=== PATIENT | female | born 1990 | race Caucasian/White ===

== ENCOUNTER 2022-09-09 11:07 | Emergency (ER) | payer BC, SELFPAY ==
--- NOTE | 2022-09-09 11:17 | ED.EAR ---
HPI - Ear Problem General Chief complaint: Ear Stated complaint: bilateral ear pain Time Seen by Provider: 09/09/22 11:16 Source: patient Mode of arrival: ambulatory Limitations: no limitations History of Present Illness HPI Narrative: Mireya is a 31-year-old female patient presenting to the clinic today with complaints of bilateral ear pain x1 week. She reports with she is has clogging and popping in her ears. She is also concerned about her right eye states that it was itchy and red yesterday but has somewhat improved. She denies any known drainage coming from her eye. Related Data Home Medications Medication Instructions Recorded Confirmed fexofenadine 60 mg tablet (Hanane 60 mg PO DAILY 09/09/22 09/09/22 Allergy) Allergies Allergy/AdvReac Type Severity Reaction Status Date / Time Penicillins Allergy Unknown Verified 09/09/22 11:33 prednisone AdvReac Rash Verified 09/09/22 11:32 Review of Systems Review of Systems: Pertinent positives per HPI. Patient denies any fever, chills, rash, headache, visual changes, dizziness, cough, runny nose, sore throat, shortness of breath, chest pain, palpitations, nausea, vomiting, diarrhea, constipation, abdominal pain, or any urinary issues. PMFSH Comments At the time of my signature, I reviewed and agree with the nursing past medical, surgical, social, and family history. There is no relevant family history pertinent to the patient complaint. Exam Narrative: General: Well-developed, well nourished, in no apparent distress Head: Normocephalic, atraumatic Eyes: Pupils equally round and reactive to light bilaterally, EOM intact, left sclera and conjunctive clear, right sclera is injected and conjunctiva mildly injected, no discharge, lids normal Ears: TMs intact, dull, bulging, fluid noted behind the TM, ear canals clear, no drainage, grossly hearing normal. Nose: Nares patent, clear neck discharge, no inflammation, no sinus tenderness. Mouth: Oropharynx without lesions or masses, good dentition, MMM. Neck: Supple, trachea midline, no enlargement of anterior or posterior cervical nodes, no thyroid masses or goiter palpable. Cardio: Regular rate and rhythm, s1 and s2 normal, no murmur appreciated. Resp: Clear to auscultation bilaterally anteriorly and posteriorly, no rhonchi, rales, wheezing or rubs Course Course Emergency Course: Portions of this record may have been created with voice recognition software. Level of Care: Express Care Visit Vital Signs Vital signs: Vital Signs Temperature 36.4 C L 09/09/22 11:26 Pulse Rate 90 09/09/22 11:26 Respiratory Rate 18 09/09/22 11:26 Blood Pressure 141/87 H 09/09/22 11:26 Pulse Oximetry 99 09/09/22 11:26 Oxygen Delivery Room Air 09/09/22 11:26 Temperature 36.4 C L 09/09/22 11:26 Pulse Rate 90 09/09/22 11:26 Respiratory Rate 18 09/09/22 11:26 Blood Pressure 141/87 H 09/09/22 11:26 Pulse Oximetry 99 09/09/22 11:26 Oxygen Delivery Room Air 09/09/22 11:26 Vital signs reviewed Medical Decision Making MDM Narrative Medical decision making narrative: At the time of visit patient is resting comfortably on the exam table. I suspect patient has eustachian tube dysfunction , serous otitis, and right eye irritation. Supportive measures were discussed with the patient she voiced understanding of discharge instructions and agrees to treatment plan Differential Diagnosis Differential Diagnosis: Otitis media, otitis externa, eustachian tube dysfunction, otalgia Vital Signs Vital Signs: Vital Signs Temperature 36.4 C L 09/09/22 11:26 Pulse Rate 90 09/09/22 11:26 Respiratory Rate 18 09/09/22 11:26 Blood Pressure 141/87 H 09/09/22 11:26 Pulse Oximetry 99 09/09/22 11:26 Oxygen Delivery Room Air 09/09/22 11:26 Temperature 36.4 C L 09/09/22 11:26 Pulse Rate 90 09/09/22 11:26 Respiratory Rate 18 09/09/22 11:26 Blood Pressure 141/87 H 09/09/22 1
[2022-09-09 11:26] VITALS: BP 141/87; PULSE 90; RESP 18; TEMP 36.4; O2SAT 99
== END 2022-09-09 11:40 | disposition home or self-care (01) ==
PROVIDERS: Emergency Provider Nurse Practitioner Family
DX: H65.03 Acute serous otitis media, bilateral (principal); H69.81 Other specified disorders of Eustachian tube, right ear
CPT/HCPCS: 99202; G0463

== ENCOUNTER 2022-12-28 08:36 | Emergency (ER) | payer BC, SELFPAY ==
[2022-12-28 09:02] VITALS: BP 121/74; PULSE 80; RESP 18; TEMP 36.6; O2SAT 100
--- NOTE | 2022-12-28 09:24 | ED.URI ---
HPI - URI/Sore Throat General Chief Complaint: Upper Respiratory Infection Stated Complaint: Sore Throat,Bilateral Ear Irritation Source: patient Mode of arrival: ambulatory Limitations: no limitations History of Present Illness HPI Narrative: 31-year-old female presents to [facility] complains of sore throat and bilateral ear pain for the past 4 days. Patient takes Hanane daily. Patient reports her son was recently sick with bilateral ear infection. Patient denies fever, body aches, chills, nausea, vomiting or diarrhea. Patient denies recent trauma. Patient denies fever, body aches, chills, nausea, vomiting or diarrhea MD elicited complaint: sore throat and other (Bilateral ear pain) Onset (ago): day(s) (4) Able to tolerate fluids by mouth: Yes Exacerbating factors: swallowing Context: sick contacts Related Data Home Medications Medication Instructions Recorded Confirmed fexofenadine 60 mg tablet (Hanane 60 mg PO DAILY 09/09/22 12/28/22 Allergy) Allergies Allergy/AdvReac Type Severity Reaction Status Date / Time Penicillins Allergy Unknown Verified 09/09/22 11:33 prednisone AdvReac Rash Verified 09/09/22 11:32 Review of Systems Constitutional: Constitutional: Denies fatigue, Denies fever(s) and Denies weakness ENT: Denies dysphagia, Denies vertigo, Denies dizziness, Denies epistaxis, Denies nasal congestion and Reports sore throat Comments: Bilateral ear irritation Cardiovascular: Cardiovascular: Denies chest pain Respiratory: Respiratory: Denies chest congestion, Denies cough, Denies dyspnea and Denies wheezing Gastrointestinal: Gastrointestinal: Denies diarrhea, Denies nausea and Denies vomiting Genitourinary: Genitourinary: Denies hematuria, Denies nocturia, Denies genital lesions and Denies dysuria Integumentary/Breasts: Skin/Breast: Denies rash Neurologic: Denies dizziness, Denies syncope and Denies headache(s) PMFSH Comments At time of signature, I agree with nursing past medical, surgical, social and family history. There is no relevant family history pertinent to the presenting complaint. Exam Const: General: healthy appearing and no acute distress Nutritional Appearance: well nourished Orientation/consciousness: patient oriented x3 Limitations: no limitations and No altered mental status HENMT: Head: normal to inspection Ears: external ears normal, EAC's normal and TM abnormal wth effusion serous bilateral Face and sinus: normal facial exam Mouth: Yes Normal oral and palatal mucosa present, Yes lip normal and Yes moist mucous membranes Teeth and gingiva: dentition normal Throat: posterior oropharynx normal and uvula midline Eyes: Conjunctivae: conjunctivae normal Neck: Neck: normal visual inspection Resp: Effort & Inspection: normal respiratory effort and not labored Auscultation: clear to auscultation bilaterally, no crackles, no rales, no rhonchi and no wheezes Cardio: Rate: regular rate Rhythm: regular rhythm Heart sounds: no murmurs Skin: General skin exam: normal color Neuro: General: patient oriented x3 Speech: normal speech Gait exam (Neuro): Normal gait present Psych: Affect: normal affect Attitude: cooperative Course Course Level of Care: Express Care Visit Vital Signs Vital signs: Vital Signs Temperature 36.6 C 12/28/22 09:02 Pulse Rate 80 12/28/22 09:02 Respiratory Rate 18 12/28/22 09:02 Blood Pressure 121/74 12/28/22 09:02 Pulse Oximetry 100 12/28/22 09:02 Oxygen Delivery Room Air 12/28/22 09:02 Temperature 36.6 C 12/28/22 09:02 Pulse Rate 80 12/28/22 09:02 Respiratory Rate 18 12/28/22 09:02 Blood Pressure 121/74 12/28/22 09:02 Pulse Oximetry 100 12/28/22 09:02 Oxygen Delivery Room Air 12/28/22 09:02 MDM - URI/Sore Throat MDM Narrative Medical decision making narrative: Instructed patient to continue Hanane daily. Patient reports that she has Flonase at home that she will restart using. N
== END 2022-12-28 09:40 | disposition home or self-care (01) ==
PROVIDERS: Emergency Provider Nurse Practitioner Family
DX: H65.00 Acute serous otitis media, unspecified ear (principal)
CPT/HCPCS: 87081; 87880; 99213; G0463

== ENCOUNTER 2024-10-05 12:30 | Emergency (ER) | payer BC, SELFPAY ==
[2024-10-05 12:53] VITALS: BP 125/83; PULSE 67; RESP 18; TEMP 36.7; O2SAT 100
--- NOTE | 2024-10-05 13:35 | ED_ITS ---
HPI - URI/Sore Throat General Chief Complaint: Upper Respiratory Infection Stated Complaint: congestion and ear pain Time Seen by Provider: 10/05/24 13:35 Source: patient, RN notes reviewed and old records reviewed Mode of arrival: ambulatory Limitations: no limitations History of Present Illness HPI Narrative: Patient presents with complaints of left ear pain. She reports that she had some URI symptoms earlier in the week, has been treating them with [id number] medications with reasonable results. States that suddenly today she began with severe left ear pain, worse with bending over. She denies any fever, chills, sweats. she denies any injury or trauma. She voices no other concerns or complaints at this time. Related Data Allergies Allergy/AdvReac Type Severity Reaction Status Date / Time Penicillins Allergy Mild Rash Verified 10/05/24 13:41 prednisone Allergy Rash Verified 10/05/24 13:41 Review of Systems Review of Systems: All systems reviewed & are unremarkable except as noted in HPI and below Constitutional: Constitutional: Reports no additional constitutional complaints ENT: Reports system reviewed and no additional complaints, except as documented, Reports otalgia, Reports nasal discharge and Reports post nasal drip Cardiovascular: Cardiovascular: Reports no additional cardiovascular complaints Respiratory: Respiratory: Reports no additional respiratory complaints Gastrointestinal: Gastrointestinal: Reports no additional gastrointestinal complaints PMFSH Comments At the time of my signature, I reviewed and agree with the nursing past medical, surgical, social, and family history. There is no relevant family history pertinent to the patient complaint. Exam Const: General: cooperative, no acute distress, alert and awake Orientation/consciousness: oriented to person, oriented to place and oriented to time HENMT: Head: normal to inspection Ears: TM normal on the right and TM abnormal erythematous on the left and with loss of landmarks on the left Throat: posterior oropharynx abnormal erythema and postnasal drainage Resp: Effort & Inspection: normal respiratory effort and able to speak in complete sentences Auscultation: clear to auscultation bilaterally, no crackles, no rales, no rhonchi and no wheezes Cardio: Palpation: normal PMI Rate: regular rate Rhythm: regular rhythm Heart sounds: S1 normal heart sound present and S2 normal heart sound present Neuro: General: oriented to person, oriented to place and oriented to time Cranial nerves: Yes CN's II-XII intact bilaterally Psych: Appearance: grossly normal Thought process: Normal thought process present Insight: Good insight present (Psych) Judgement: Good judgement present (Psych) Course Course Level of Care: Express Care Visit Vital Signs Vital signs: Vital Signs Temperature 98.1 F 10/05/24 12:53 Pulse Rate 67 10/05/24 12:53 Respiratory Rate 18 10/05/24 12:53 Blood Pressure 125/83 10/05/24 12:53 Pulse Oximetry 100 10/05/24 12:53 Oxygen Delivery Room Air 10/05/24 12:53 Temperature 98.1 F 10/05/24 12:53 Pulse Rate 67 10/05/24 12:53 Respiratory Rate 18 10/05/24 12:53 Blood Pressure 125/83 10/05/24 12:53 Pulse Oximetry 100 10/05/24 12:53 Oxygen Delivery Room Air 10/05/24 12:53 Reviewed MDM - URI/Sore Throat MDM Narrative Medical decision making narrative: History and exam consistent with otitis media. Patient nontoxic appearing. Stable for discharge with p.o. antibiotic therapy. Discharge instructions reviewed with patient, as well as provided in writing per nursing staff. The instructions also include specific and strict return/GO TO THE ER as well as f/u information. All questions have been answered, and the patient deny any further questions with discharge and discharge plan. Some parts of this dictation were generated by voice recognition software and may contain typographical and/or grammatical inaccuracies. Differential Diagnosis Differential diagnosis: Likely upper respiratory infection, otitis media, viral infection, bronchitis, influenza and pharyngitis Medical Records Attestation: I reviewed the patient's medical records. Discharge Plan Discharge Clinical Impression: Otitis media Qualifiers: Otitis media type: suppurative Chronicity: acute Laterality: left Recurrence: not specified as recurrent Spontaneous tympanic membrane rupture: without spontaneous rupture Qualified Code(s): H66.002 - Acute suppurative otitis media without spontaneous rupture of ear drum, left ear Patient Disposition: Home, Self-Care Condition: Stable Instructions: Antibiotic Form, Ear Infection (ED) Additional Instructions: Take medications as prescribed. Follow with primary care provider. Emergency department for new or worsened symptoms Patient Language: Mohawk Prescriptions: New azithromycin 250 mg tablet See Rx Instructions .ROUTE .COMPLEX Qty: 6 0RF Rx Instructions: For 250 mg dose pack: take 500 mg today (day 1), then 250 mg for 4 days (days 2-5) Follow-up/Referrals: PHYSICIAN,ACCOUNTS CLERK [Primary Care Provider] - Time of Disposition: 13:44
== END 2024-10-05 13:48 | disposition home or self-care (01) ==
PROVIDERS: Emergency Provider Nurse Practitioner Family; Referring Provider Family Medicine
DX: H66.002 Acute suppurative otitis media without spontaneous rupture of ear drum, left ear (principal)
CPT/HCPCS: 99213; G0463

== ENCOUNTER 2025-07-30 14:36 | Emergency (ER) | payer BC, SELFPAY ==
[2025-07-30 14:47] VITALS: BP 136/73; PULSE 94; RESP 16; TEMP 36.8; O2SAT 100
--- NOTE | 2025-07-30 15:45 | ED_ITS ---
HPI - Wound/Laceration General Chief Complaint: Wound/Laceration Stated Complaint: cut finger Time Seen by Provider: 07/30/25 15:00 Source: patient Mode of arrival: ambulatory Limitations: no limitations History of Present Illness HPI narrative: Mireya is a 34-year-old 6 week female patient presenting to the clinic today with complaints of a cut/wound to her left 4th finger under her wedding ring with swelling x1 week. She reports she has been and able to get her wedding ring off her finger due to the swelling. Has tried ice and did show soap to remove the waiting room without success. States there has been some yellowish discharge and blood coming from the finger. Denies any fevers, chills, body aches. Related Data Allergies Allergy/AdvReac Type Severity Reaction Status Date / Time Penicillins Allergy Mild Rash Verified 07/30/25 14:58 prednisone Allergy Rash Verified 07/30/25 14:58 Review of Systems Review of Systems: Pertinent positives per HPI. Patient denies any fever, chills, rash, headache, visual changes, dizziness, cough, runny nose, sore throat, shortness of breath, chest pain, palpitations, nausea, vomiting, diarrhea, constipation, abdominal pain, or any urinary issues. PMFSH Comments At the time of my signature, I reviewed and agree with the nursing past medical, surgical, social, and family history. There is no relevant family history pertinent to the patient complaint. Exam Narrative: General: Well-developed, well nourished, in no apparent distress Head: Normocephalic, atraumatic. Cardio: Regular rate and rhythm, s1 and s2 normal, no murmur appreciated. Resp: Clear to auscultation bilaterally, no rhonchi, rales, wheezing or rubs. Integumentary: [place], warm, and dry, left 4th finger swollen with redness to the proximal phalanx, red open ulcerated wound to the left proximal dorsal finger that is bleeding and has yellow purulent discharge. Area is tender to palpation without palpable abscess, unable to remove wedding ring/anniversary band due to swelling-rings are causing skin to be ulcerated. Course Course Emergency Course: Portions of this record may have been created with voice recognition software. Level of Care: Express Care Visit Vital Signs Vital signs: Vital Signs Temperature 36.8 C 07/30/25 14:47 Pulse Rate 94 10/20/25 14:47 Respiratory Rate 16 07/30/25 14:47 Blood Pressure 136/73 07/30/25 14:47 Pulse Oximetry 100 07/30/25 14:47 Temperature 36.8 C 07/30/25 14:47 Pulse Rate 94 07/30/25 14:47 Respiratory Rate 16 07/30/25 14:47 Blood Pressure 136/73 07/30/25 14:47 Pulse Oximetry 100 07/30/25 14:47 Vital signs reviewed MDM - Wound/Laceration MDM Narrative Medical decision making narrative: At the time of visit patient is resting comfortably on the exam table. Patient appears to be nontoxic. Complaints of a cut/wound to her left 4th finger under her wedding ring with swelling x1 week. She reports she has been and able to get her wedding ring off her finger due to the swelling. Has tried ice and did show soap to remove the waiting room without success. States there has been some yellowish discharge and blood coming from the finger. Denies any fevers, chills, body aches. On exam left 4th finger swollen with redness to the proximal phalanx, red open ulcerated wound to the left proximal dorsal finger that is bleeding and has yellow purulent discharge. Area is tender to palpation without palpable abscess, unable to remove wedding ring/anniversary band due to swelling-rings are causing skin to be ulceratedVerbal consent obtained from patient to remove wedding band and anniversary band from the left 4th finger. Ring cutter was ordered. Procedures: Battery operated ring cutter was used to remove wedding band and anniversary band from the left 4th finger. Sterile normal saline was used to help alleviate pain/burning. Patient tolerated well. Both rings were cut into 3 pieces and placed in a sterile cup and given to the patient. Plan: I suspect patient has an open wound with infection to the left 4th finger. Will send in prescription for cephalexin and mupirocin cream. Risk of cephalexin with cross sensitivity to penicillins was reviewed with the patient and she is to discontinue the medication if she develops any allergic type reactions. She voiced understanding. Supportive measures were discussed with the patient and they voiced understanding discharge instructions and agrees to treatment plan. Return precautions reviewed Differential Diagnosis Differential diagnosis: Likely laceration, abscess, abrasion and avulsion of skin Discharge Plan Discharge Clinical Impression: Wound, open, finger Qualifiers: Encounter type: initial encounter Qualified Code(s): S61.209A - Unspecified open wound of unspecified finger without damage to nail, initial encounter Patient Disposition: Home Condition: Stable Instructions: Antibiotic Form, Wound Infection (ED) Additional Instructions: Apply mupirocin cream to the affected area twice a day x7 days Take Keflex as prescribed Keep wound clean and dry Watch for signs and symptoms of infection- redness, streaking, swelling, purulent discharge, or increase in pain. Follow up with your PCP in 2-3 days for wound check Approved Medications for Patients Cold and Flu Symptoms --Tylenol (regular or extra Strength) Fever (call if over 101?)--Tylenol (regular or extra Strength) Nasal Drainage/Head Congestion--Chlor-Trimeton, Sudafed, Tavist,Tylenol Sinus Cough--Robitussin, Delsym, Mucinex Sore Throat--Chloraseptic, Cepacol lozenges Allergy Symptoms--Benadryl, Zyrtec, Zyrtec D, Claritin, Claritin D Nausea--Emetrol, Vitamin B6 Tablets, Belen, Belen Tea, Preggie Pops, B-Xochitl Suckers Constipation--Milk of Magnesia, Metamucil, Fiberall, Konsyl, Colace (Docusate Sodium Diarrhea--Imodium, Kaopectate, Follow BRAT diet: bananas, rice, applesauce, tea/toast Heartburn--Maalox, Mylanta, TUMS, Prilosec OTC, Zantac, Tagament, Prevacid, Pepcid Hemorrhoids--Tucks Pads, Anusol, Preparation H, warm sitz baths Patient Language: [place] Prescriptions: New cephalexin 500 mg capsule 500 mg PO Q8H 7 Days Qty: 21 0RF mupirocin [Centany] 2 % ointment 1 applic topical BID 7 Days Qty: 22 0RF Follow-up/Referrals: UNKNOWN,DOCTOR [Primary Care Provider] Time of Disposition: 15:50 Quality NIHSS Nursing Documentation ED NIHSS nursing documentation: reviewed/agree
== END 2025-07-30 15:56 | disposition home or self-care (01) ==
PROVIDERS: Emergency Provider Nurse Practitioner Family
DX: O9A.211 Injury, poisoning and certain other consequences of external causes complicating pregnancy, first trimester (principal); S61.205A Unspecified open wound of left ring finger without damage to nail, initial encounter; Z3A.01 Less than 8 weeks gestation of pregnancy; X58.XXXA Exposure to other specified factors, initial encounter
CPT/HCPCS: 99213; G0463